=== PATIENT | male | born 1975 | race Caucasian/White ===

== ENCOUNTER 2018-05-01 17:05 | Emergency (ER) | payer OTHER ==
[2018-05-01 17:28] VITALS: TEMP 98.4; BMI 25.9
[2018-05-01] MEDS ORDERED: FLUORESCEIN NA 1 EA STRIP ONE (18:30)
[2018-05-01] MEDS ORDERED: TETRACAINE 0.5% OPHTH SOLN 2 ML BOTTLE ONE (18:30)
[2018-05-01] MEDS ORDERED: ERYTHROMYCIN 0.5% OPHTHALMIC OINTMENT 3.5 GM TUBE ONE (18:31)
[2018-05-01 18:41] VITALS: BP 125/82; PULSE 62
[2018-05-01] MEDS ORDERED: TETRACAINE 0.5% HCL 0.6ML DROPPER.BOTTLE OS ONE (18:50)
[2018-05-01] MEDS ORDERED: FLUORESCEIN NA 1 EA STRIP OS ONE (18:50)
--- NOTE | 2018-05-01 18:50 | PDOC ---
History of Present Illness <Fabrizio Worthington - Last Filed: 05/01/18 18:47> - General History Source: Patient Exam Limitations: No Limitations - History of Present Illness Initial Comments: 05/01/18 18:53 The patient is a 42 year old male with no past medical history who presents to the emergency department for evaluation of left eye problem. 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 He reports moderate irritation and redness of the left eye. Patient states he has been rinsing the afflicted eye since it came into contact with the smoking pipes cleaner. The patient denies change in vision, headache, dizziness, chest pain, or shortness of breath. 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 Past History - Past Medical History COPD: No - Suicide/Smoking/Psychosocial Hx Smoking History: Never smoked Hx Alcohol Use: No Drug/Substance Use Hx: No Substance Use Type: None <Fabrizio Worthington - Last Filed: 05/01/18 18:47> <Regi Gill - Last Filed: 05/01/18 19:24> - Past Medical History Allergies/Adverse Reactions: Allergies Allergy/AdvReac Type Severity Reaction Status Date / Time No Known Allergies Allergy Verified 05/01/18 17:20 Home Medications: Ambulatory Orders NK [No Known Home Medication] 05/01/18 Review of Systems - Review of Systems Able to Perform ROS?: Yes Comments:: CONSTITUTIONAL: Absent: fever, chills, diaphoresis, generalized weakness, malaise, loss of appetite HEENT: (+)Left eye pain. (+)Redness of the left eye. Absent: rhinorrhea, nasal congestion, throat pain, throat swelling, difficulty swallowing, mouth swelling, ear pain, eye pain, visual Changes CARDIOVASCULAR: Absent: chest pain, syncope, palpitations, irregular heart rate, lightheadedness , peripheral edema RESPIRATORY: Absent: cough, shortness of breath, dyspnea with exertion, orthopnea, wheezing, stridor, hemoptysis GASTROINTESTINAL: Absent: abdominal pain, abdominal distension, nausea, vomiting, diarrhea, constipation, melena, hematochezia GENITOURINARY: Absent: dysuria, frequency, urgency, hesitancy, hematuria, flank pain, genital pain MUSCULOSKELETAL: Absent: myalgia, arthralgia, joint swelling SKIN: Absent: rash, itching, pallor HEMATOLOGIC/IMMUNOLOGIC: Absent: easy bleeding, easy bruising, lymphadenopathy, frequent infections ENDOCRINE: Absent: unexplained weight gain, unexplained weight loss, heat intolerance, cold intolerance NEUROLOGIC: Absent: headache, focal weakness or paresthesias, dizziness, unsteady gait, seizure, mental status changes, bladder or bowel incontinence PSYCHIATRIC: Absent: anxiety, depression, suicidal or homicidal ideation, hallucinations. <Regi Gill - Last Filed: 05/01/18 19:24> *Physical Exam - Vital Signs Last Vital Signs Temp Pulse Resp BP Pulse Ox 98.4 F 62 125/82 98 05/01/18 17:19 05/01/18 17:19 05/01/18 17:19 05/01/18 17:19 <Fabrizio Worthington - Last Filed: 05/01/18 18:47> - Vital Signs Last Vital Signs Temp Pulse Resp BP Pulse Ox 98.4 F 62 125/82 98 05/01/18 17:19 05/01/18 17:19 05/01/18 17:19 05/01/18 17:19 - Physical Exam Comments: GENERAL: Well-appearing, well-nourished. No apparent distress. HEENT: (+)Left eye: Moderate conjunctival injection, but no ciliary flush. Mild upper eyelid edema, no tenderness to palpation. Visual acuity intact. Cornea clear with fluorescein staining. No sign of abrasion or ulceration. PH=7.0. No discharge. Normocephalic, atraumatic. PERRL, EOM intact. CARDIOVASCULAR: Normal S1, S2. Regular rate and rhythm. PULMONARY: Clear to auscultation bilaterally. ABDOMEN: Soft, non-distended, non-tender. EXTREMITIES: Normal ROM in all four extremities. No gross deformities. SKIN: Warm, dry. No rash NEUROLOGICAL: No focal neurological deficits. <Regi Gill - Last Filed: 05/01/18 19:24> *DC/Admit/Observation/Transfer - Discharge Dispostion Decision to Admit order: No <Fabrizio Worthington - Last Filed: 05/01/18 18:47> - Attestations Scribe Attestion: Documentation prepared by Regi Gill, acting as pediatric medical assistant for Fabrizio Worthington MD. <Regi Gill - Last Filed: 05/01/18 19:24> Diagnosis at time of Disposition: Chemical conjunctivitis Qualifiers: Laterality: left Qualified Code(s): H10.212 - Acute toxic conjunctivitis, left eye - Discharge Dispostion Disposition: HOME Condition at time of disposition: Improved - Referrals Referrals: Varghese Swain MD [Staff Physician] - 24 hours - Patient Instructions Printed Discharge Instructions: DI for Conjunctivitis Additional Instructions: Cool compresses and antibiotic ointment as directed See eye doctor tomorrow for reevaluation to ensure that healing is proceeding properly and there is no new evidence of eye damage. - Post Discharge Activity Forms/Work/School Notes: Back to Work
[2018-05-01] MEDS ORDERED: ERYTHROMYCIN 0.5% OPHTHALMIC OINTMENT 3.5 GM TUBE OU ONE (18:52)
== END 2018-05-01 19:01 | disposition home or self-care (01) ==
LOC: FER 17:05
DX: H57.8 Other specified disorders of eye and adnexa (principal); H10.212 Acute toxic conjunctivitis, left eye; X58.XXXA Exposure to other specified factors, initial encounter; Y93.89 Activity, other specified; Y92.89 Other specified places as the place of occurrence of the external cause
CPT/HCPCS: 99281-25

== ENCOUNTER 2019-03-21 12:56 | Emergency (ER) | payer OTHER ==
[2019-03-21] MEDS ORDERED: TETRACAINE 0.5% OPHTH SOLN 2 ML BOTTLE ONE (13:19)
[2019-03-21] MEDS ORDERED: FLUORESCEIN NA 1 EA STRIP ONE (13:19)
[2019-03-21 13:25] VITALS: BP 118/86; PULSE 68; TEMP 98.8; BMI 26.3
[2019-03-21] MEDS ORDERED: TOBRAMYCIN 0.3% OPHTH SOLN 5 ML BOTTLE OD ONE (13:46)
[2019-03-21] MEDS ORDERED: TOBRAMYCIN 0.3% OPHTH SOLN 5 ML BOTTLE ONE (13:46)
--- NOTE | 2019-03-21 13:51 | PDOC ---
History of Present Illness - General Chief Complaint: Eye Problem Stated Complaint: RT EYE SWELLING Time Seen by Provider: 03/21/19 13:45 Past History - Past Medical History Allergies/Adverse Reactions: Allergies Allergy/AdvReac Type Severity Reaction Status Date / Time No Known Allergies Allergy Verified 05/01/18 17:20 Home Medications: Ambulatory Orders Cetirizine HCl/Pseudoephedrine [Zyrtec-D Tablet] 1 each PO AM #10 tab.er.12h Tobramycin Sulf/Dexamethasone [Tobradex *Eye Drops*] 1 drop OD Q6HPO #1 drops COPD: No - Suicide/Smoking/Psychosocial Hx Smoking History: Never smoked Have you smoked in the past 12 months: No Information on smoking cessation initiated: No Hx Alcohol Use: No Drug/Substance Use Hx: No Substance Use Type: None *Physical Exam - Vital Signs Last Vital Signs Temp Pulse Resp BP Pulse Ox 98.8 F 68 20 118/86 100 03/21/19 12:57 03/21/19 12:57 03/21/19 12:57 03/21/19 12:57 03/21/19 12:57 *DC/Admit/Observation/Transfer Diagnosis at time of Disposition: Chemical conjunctivitis Qualifiers: Laterality: right Qualified Code(s): H10.211 - Acute toxic conjunctivitis, right eye Corneal abrasion Qualifiers: Encounter type: initial encounter Laterality: right Qualified Code(s): S05.01XA - Injury of conjunctiva and corneal abrasion without foreign body, right eye, initial encounter - Discharge Dispostion Disposition: HOME Condition at time of disposition: Improved Decision to Admit order: No - Referrals - Patient Instructions Printed Discharge Instructions: DI for Corneal Abrasion - Post Discharge Activity Forms/Work/School Notes: Back to Work
== END 2019-03-21 14:23 | disposition home or self-care (01) ==
LOC: FER 12:56
DX: H10.211 Acute toxic conjunctivitis, right eye (principal); S05.10XA Contusion of eyeball and orbital tissues, unspecified eye, initial encounter; X58.XXXA Exposure to other specified factors, initial encounter; Y93.9 Activity, unspecified; Y92.9 Unspecified place or not applicable
CPT/HCPCS: 99281-25

== ENCOUNTER 2021-06-09 04:28 | Day surgery (SDC) | payer OTHER ==
[2021-06-08 13:22] VITALS: BMI 25.0
[2021-06-09] MEDS ORDERED: LIDOCAINE HCL/PF 2% SDV 5ML VIAL ONE (10:56)
[2021-06-09] MEDS ORDERED: MIDAZOLAM HCL 2 MG/2 ML SINGLE DOSE VIAL ONE (10:56)
[2021-06-09] MEDS ORDERED: ROCURONIUM BROMIDE 50 MG/5 ML SYRINGE ONE (10:56)
[2021-06-09] MEDS ORDERED: DEXAMETHASONE SOD PHOSPHATE 4 MG/1 ML VIAL ONE (10:56)
[2021-06-09] MEDS ORDERED: PROPOFOL 20 ML ONE (10:56)
[2021-06-09] MEDS ORDERED: BUPIVACAINE HCL/PF 0.5% (5MG/ML) 10 ML VIAL ONE (11:03)
[2021-06-09] MEDS ORDERED: oxyCODONE HCL 5 MG TABLET PO PRN (11:24)
[2021-06-09] MEDS ORDERED: ONDANSETRON 4 MG/2 ML VIAL IVPUSH PRN (11:24)
[2021-06-09] MEDS ORDERED: LACTATED RINGERS SOLUTION 1,000 ML IV SCH (11:30)
[2021-06-09] MEDS ORDERED: LIDOCAINE HCL 1%, 10 MG/ML (20ML VIAL) ONE (11:30)
[2021-06-09] MEDS ORDERED: ceFAZolin SODIUM 1 GM VIAL ONE (11:31)
[2021-06-09] MEDS ORDERED: ceFAZolin 2 GRAM PREMIX BAG IVPB ONE (11:32)
[2021-06-09] MEDS ORDERED: LIDOCAINE HCL 1%, 10 MG/ML (20ML VIAL) NR ONE ×2 (11:41)
[2021-06-09] MEDS ORDERED: BUPIVACAINE HCL/PF 0.5% (5MG/ML) 10 ML VIAL IJ ONE ×2 (11:41)
[2021-06-09] MEDS ORDERED: GLYCOPYRROLATE 0.2 MG/1 ML VIAL ONE (12:04)
[2021-06-09] MEDS ORDERED: NEOSTIGMINE METHYLSULFATE 0.5 MG/ML - 10 ML MDV ONE (12:04)
[2021-06-09] MEDS ORDERED: BENZOIN/ALOE VERA/STORAX/TOLU 58 ML BOTTLE TP ONE (12:21)
[2021-06-09 17:51] VITALS: TEMP 97.2
[2021-06-09 17:52] VITALS: BP 125/78; PULSE 62
== END 2021-06-09 17:00 | disposition home or self-care (01) ==
LOC: JASU-SURG 04:28
PROVIDERS: ATTEND Surgery
PROC: 0WQF0ZZ Repair Abdominal Wall, Open Approach (ICD-10-PCS; principal; 2021-06-09 11:00)
DX: K42.0 Umbilical hernia with obstruction, without gangrene (principal)
CPT/HCPCS: 88302-TC; 94760